=== PATIENT | male | born 1960 ===

== ENCOUNTER → 2016-11-02 | Outpatient (REF) | LOC: WSOH 10:04 | DX: Z00.00 Encounter for general adult medical examination without abnormal findings (principal) ==

== ENCOUNTER → 2017-01-13 | Outpatient (REF) | LOC: WSOH 09:25 | DX: Z02.89 Encounter for other administrative examinations (principal) ==

== ENCOUNTER → 2017-01-13 | Outpatient (REF) | LOC: WSOH 13:17 | DX: Z02.89 Encounter for other administrative examinations (principal) ==